=== PATIENT | female | born 1975 | race Asian ===

== ENCOUNTER 2019-09-15 13:19 | Inpatient (IN) | payer MEDICAID ==
[~2019-09-15] VITALS: Ht 160 cm; Wt 63.5 kg
[2019-09-15 13:20] VITALS: BP_SYST 127
--- NOTE | 2019-09-15 13:27 | NUR ---
Patient triaged and placed in waiting room. VSS and patient appears in no acute distress at this time. Accompanied by mother, awaiting available bed, and MD notified of need for MSE.
--- NOTE | 2019-09-15 13:45 | NUR ---
CORY Fonseca at bedside examining patient.
--- NOTE | 2019-09-15 14:07 | NUR ---
Patient is awake, alert, and oriented x4. She is complaining of shortness of breath x3 days, abdominal pain and right shoulder pain. She denies nausea and vomiting.
[2019-09-15 14:28] LABS: BASOPHILS # (AUTO) 0.1 K/uL (0.0-0.2); BASOPHILS % (AUTO) 0.9 % (0.0-2.0); EOSINOPHILS # (AUTO) 0.3 K/uL (0.0-0.4); EOSINOPHILS % (AUTO) 3.1 % (0.0-4.0); HEMATOCRIT 48.4 % (36-48); HEMOGLOBIN 16.2 g/dL (12.0-16.0); LYMPHOCYTES # (AUTO) 2.3 K/uL (1.0-5.5); LYMPHOCYTES % (AUTO) 26.6 % (20.5-51.5); MEAN CORPUSCULAR HEMOGLOBIN 31 pg (27-31); MEAN CORPUSCULAR HGB CONC 33 % (32-36); MEAN CORPUSCULAR VOLUME 92 fL (79.0-98.0); MONOCYTES # (AUTO) 0.7 K/uL (0.0-1.0); MONOCYTES % (AUTO) 7.9 % (1.7-9.3); NEUTROPHILS # (AUTO) 5.3 K/uL (1.8-7.7); NEUTROPHILS % (AUTO) 61.5 % (40.0-70.0); PLATELET COUNT (AUTO) 248 K/uL (130-430); RED BLOOD CELL COUNT(AUTO) 5.23 MIL/uL (4.2-6.2); RED CELL DISTRIBUTION WIDTH 13.5 % (9.0-15.0); WHITE BLOOD COUNT (AUTO) 8.5 K/uL (4.8-10.8)
[2019-09-15 14:29] LABS: CALCIUM 8.2 mg/dL (8.4-11.0); CREATININE 1.38 mg/dL (0.55-1.30); POTASSIUM 3.8 mmol/L (3.5-5.1)
[2019-09-15 14:35] LABS: ALBUMIN 2.2 g/dL (3.4-4.8); TOTAL BILIRUBIN 0.4 mg/dL (0.0-1.0)
[2019-09-15 14:40] LABS: BILIRUBIN,URINE NEGATIVE (NEGATIVE); BLOOD, URINE 2+ (NEGATIVE); CLARITY/URINE CLEAR (CLEAR); COLOR,URINE YELLOW (YELLOW); GLUCOSE,URINE 3+ (NEGATIVE); KETONES,URINE NEGATIVE (NEGATIVE); LEUKOCYTE ESTERASE ,URINE NEGATIVE (NEGATIVE); NITRITE, URINE NEGATIVE (NEGATIVE); PH,URINE 5.5 (5.0-8.0); PROTEIN URINE 3+ (NEGATIVE); UROBILINOGEN,URINE 0.2 (0.2-1.0)
[2019-09-15 14:51] LABS: BARBITURATE, URINE NEGATIVE (NEG <=200); BENZODIAZEPINE, URINE NEGATIVE (NEG <=150); CANNABINOID, URINE NEGATIVE (NEG <=50); COCAINE, URINE NEGATIVE (NEG <=150); METHAMPHETAMINES SCREEN,URINE POSITIVE (NEG <=500); OPIATE, URINE NEGATIVE (NEG <=100); PHENCYCLIDINE SCREEN,URINE NEGATIVE (NEG <=25); RBC,URINE 0-3 /HPF (0-3); UR TRICYCLIC ANTIDEPRESSANTS NEGATIVE (NEG <=300); URINE AMPHETAMINE POSITIVE (NEG <=500); URINE METHADONE NEGATIVE (NEG <=200); URINE OXYCODONE SCREEN NEGATIVE (NEG <=100); URINE PROPOXYPHENE SCREEN NEGATIVE (NEG <=300); WBC,URINE 0-3 /HPF (0-3)
[2019-09-15 14:52] LABS: BACTERIA,URINE FEW /HPF (None Seen); MUCUS,URINE None Seen /LPF (None Seen)
--- NOTE | 2019-09-15 15:23 | NUR ---
Patient will be admitted to care of Dr. Rizo. Admitted to Telemetry unit. Waiting for room assignment. Belongings list completed. Complete and up to date summary report printed. SBAR report to be given at bedside with opportunity for questions.
[2019-09-15] MEDS ORDERED: ASPIRIN 325 MG TABLET PO ONE (15:30)
--- NOTE | 2019-09-15 15:40 | NUR ---
Medication reconciliation completed with information provided by patient. Any prior medication reconciliation on file was reviewed and corrected.
--- NOTE | 2019-09-15 15:46 | NUR ---
Transfer to 116B via ACLS protocol. Licensed nurse present. IV present no signs or symptoms of infiltration.
--- NOTE | 2019-09-15 15:54 | NUR ---
ADMISSION NOTE Received patient from ER via [facility], received report from Lb CARRILLO. Patient admitted with diagnosis of NSTEM R/O ACS. Patient oriented to hospital routine, call light, toileting and safety-patient verbalized understanding.
[2019-09-15 16:00] VITALS: BP_SYST 126
[2019-09-15] MEDS ORDERED: LORazepam 2 MG/ML VIAL IM PRN (16:45)
[2019-09-15] MEDS ORDERED: HYDROcodone/ACETAMIN 5-325 MG TAB (NORCO/ VICODIN) PO PRN (16:45)
[2019-09-15] MEDS ORDERED: ACETAMINOPHEN 325 MG TABLET PO PRN (16:45)
[2019-09-15] MEDS ORDERED: DEXTROSE 50% JECT 50 ML DISP.SYRIN IVP PRN (16:45)
[2019-09-15] MEDS ORDERED: ONDANSETRON HCL 4 MG/2 ML VIAL IVP PRN (16:45)
[2019-09-15] MEDS ORDERED: GLUCOSE 15 GM GEL (in 37.5 GM TUBE) PO PRN (16:45)
[2019-09-15] MEDS ORDERED: NACL 0.9% 1,000 ML IV SCH (16:45)
--- NOTE | 2019-09-15 16:47 | NUR ---
SEEN AND EXAMINED BY ASHLY MUNOZ Dr. assess patient at bedside. Explained the diagnosis and medical condition of the patient, verbally understanding.
--- NOTE | 2019-09-15 16:48 | NUR ---
CONSULT CONSULT CALLED FOR DR MONTOYA, JEWELRY BENCH WORKER, FOR CHF, CONSULT FROM ASHLY WILLIS SPOKE WITH CHARAN
[2019-09-15 16:53] VITALS: BP_SYST 126
[2019-09-15 17:41] LABS: INR 1.1 (0.8-1.2); PROTHROMBIN TIME 10.6 SECS (9.5-12.5)
[2019-09-15] MEDS: INSULIN REGULAR, HUMAN 100 UNITS/ML, 10 ML VIAL (humuLIN R) SUBCUT PRN ×2 (17:41→23:35)
[2019-09-15 17:50] LABS: PHOSPHORUS 3.1 mg/dL (2.7-4.5); THYROID STIMULATING HORMONE 4.16 uIu/mL (0.36-3.74)
--- NOTE | 2019-09-15 18:06 | NUR ---
TROPONIN=0.210 Called Mohamud Junior for Troponin=0.210, first troponin=0.239. Dr. Rizo with no new order at this time.
--- NOTE | 2019-09-15 18:59 | NUR ---
CLOSING NOTE Patient resting in the bed with eyes closed. No acute distress. IV intact to LAC, no redness, no swelling, no drainage. On NS at 20ml/hr, infusing well. All needs met. Safety measure maintained. Call light within reached. Bed locked in low position, side rails up. Refused bed alarm, risk and benefit explained, verbally understanding. Will endorse to night nurse.
[2019-09-15 20:00] VITALS: BP_SYST 131
--- NOTE | 2019-09-15 20:00 | NUR ---
Received pt. in bed, adlib, can ambulate to the BR. Pt. in room air, breathing regular and unlabored. Denies pain and denies chest pain when assessed. Pt. alert, awake, oriented x 4, and able to verbalized understanding of present health needs. Provided pt. assistance and bedside care. Pt. SR with heart rate = 85 /minute or 80's @ the monitor.
--- NOTE | 2019-09-15 21:50 | NUR ---
Due meds. given. @ around this time. Pt. able to swallow meds. without difficulty. IVF of NS continuously running @ 20 mls./hr.
[2019-09-15] MEDS: DOCUSATE SODIUM 100 MG CAPSULE PO SCH (22:03)
[2019-09-15] MEDS: FUROSEMIDE 40 MG/4 ML VIAL IVP SCH (22:03)
[2019-09-15] MEDS: METOPROLOL TARTRATE 25 MG TABLET PO SCH (22:05)
[2019-09-15] MEDS: HEPARIN SODIUM,PORCINE 5000 UNITS/ML VIAL SUBCUT SCH (22:07)
--- NOTE | 2019-09-15 22:50 | NUR ---
Accucheck taken with result of = 222, see Emar for the Regular Insulin s/s coverage given.
--- NOTE | 2019-09-16 00:30 | NUR ---
Pt. sleeping and resting. No s/s of acute change. Pt. denies pain. Pt. denies chest pain. Pt. returned to sleep. SR @ the tele monitor.
--- NOTE | 2019-09-16 04:00 | NUR ---
Pt. calm and asleep. SR @ the monitor. Provided bedside nsg. care.
[2019-09-16 04:30] VITALS: BP_SYST 116
--- NOTE | 2019-09-16 06:30 | NUR ---
Accucheck taken with result of = 149 , No coverage of Insulin needed. Pt. still resting and dozing to sleep. Awaiting breakfast.
[2019-09-16 08:00] VITALS: BP_SYST 134
--- NOTE | 2019-09-16 08:00 | NUR ---
Note Pt sitting up in bed eating her breakfast. No SOB/resp distress or chest pain/discomfort was noted at this time. IV in left AC intact and patent. No needs noted at this time. Call light within reach.
[2019-09-16 08:49] LABS: BASOPHILS # (AUTO) 0.1 K/uL (0.0-0.2); EOSINOPHILS # (AUTO) 0.3 K/uL (0.0-0.4); EOSINOPHILS % (AUTO) 2.8 % (0.0-4.0); HEMATOCRIT 51.6 % (36-48); HEMOGLOBIN 17.5 g/dL (12.0-16.0); LYMPHOCYTES # (AUTO) 2.4 K/uL (1.0-5.5); LYMPHOCYTES % (AUTO) 27.2 % (20.5-51.5); MEAN CORPUSCULAR HEMOGLOBIN 31 pg (27-31); MEAN CORPUSCULAR HGB CONC 34 % (32-36); MEAN CORPUSCULAR VOLUME 91 fL (79.0-98.0); MONOCYTES # (AUTO) 0.8 K/uL (0.0-1.0); MONOCYTES % (AUTO) 8.6 % (1.7-9.3); NEUTROPHILS # (AUTO) 5.4 K/uL (1.8-7.7); NEUTROPHILS % (AUTO) 60.4 % (40.0-70.0); PLATELET COUNT (AUTO) 257 K/uL (130-430); RED BLOOD CELL COUNT(AUTO) 5.65 MIL/uL (4.2-6.2); RED CELL DISTRIBUTION WIDTH 13.4 % (9.0-15.0); WHITE BLOOD COUNT (AUTO) 8.9 K/uL (4.8-10.8)
[2019-09-16] MEDS: DOCUSATE SODIUM 100 MG CAPSULE PO SCH ×3 (08:54→20:57)
[2019-09-16] MEDS: METOPROLOL TARTRATE 25 MG TABLET PO SCH (08:55)
[2019-09-16] MEDS: ASPIRIN 81 MG TAB.CHEW PO SCH (08:56)
[2019-09-16] MEDS: ATORVASTATIN 20 MG TABLET PO SCH (08:56)
[2019-09-16] MEDS: FUROSEMIDE 40 MG/4 ML VIAL IVP SCH ×2 (08:56→20:55)
[2019-09-16] MEDS ORDERED: LISINOPRIL 5 MG TABLET PO SCH (09:00)
[2019-09-16 09:02] LABS: CALCIUM 8.4 mg/dL (8.4-11.0); CREATININE 1.18 mg/dL (0.55-1.30); POTASSIUM 4.3 mmol/L (3.5-5.1)
[2019-09-16] MEDS: HEPARIN SODIUM,PORCINE 5000 UNITS/ML VIAL SUBCUT SCH (09:02)
[2019-09-16] MEDS ORDERED: CARVEDILOL 6.25 MG TABLET (COREG) PO ONE (09:30)
--- NOTE | 2019-09-16 11:30 | NUR ---
Note Pt had her 2D-echo done at bedside. Dr Davis and Dr Rizo did rounds and assessment done at bedside. Pt's parents came to visit at this time as well. Pt ambulates to restroom independently with IV pole. No needs noted at this time. Call light within reach.
[2019-09-16 12:00] VITALS: BP_SYST 115
[2019-09-16] MEDS: INSULIN REGULAR, HUMAN 100 UNITS/ML, 10 ML VIAL (humuLIN R) SUBCUT PRN ×2 (12:12→21:05)
--- NOTE | 2019-09-16 13:50 | NUR ---
Note Pt resting in bed - denies any needs at this time. Tele unit attached and intact all shift. IV in left AC intact and patent. Call light within reach.
[2019-09-16 16:00] VITALS: BP_SYST 119
--- NOTE | 2019-09-16 18:30 | NUR ---
Note Pt asleep in bed after finishing her dinner sitting on side of bed. Pt was checked on q1' and PRN all shift for needs and care. IV in left AC intact and patent. No SOB/resp distress or chest pain/discomfort noted all shift. Tele unit attached and intact all shift. Call light within reach. Pt has been ambulating to restroom with steady gait all shift independently.
--- NOTE | 2019-09-16 19:30 | NUR ---
OPENING NOTES Received bedside report from GERARDO Moore. Patient is resting in bed, eyes closed, breathing evenly and nonlabored. Patient has an IV on the left AC saline locked, 18g, patent and benign, no s/s of infiltration or infection noted. Call light is with patient, instructed to call for assistance when needed, patient verbalized understanding and demonstrated back proper use. Bed is locked and at lowest position. Will continue to monitor.
[2019-09-16 19:55] VITALS: BP_SYST 119
[2019-09-16] MEDS: CARVEDILOL 6.25 MG TABLET (COREG) PO SCH (20:55)
--- NOTE | 2019-09-16 20:55 | NUR ---
MEDICATIONS/ROUNDS Patient is resting in bed, awake, alert, and oriented x4. Educated patient on medications, patient stated understanding. Patient refused colace at this time. Administered medications to the patient, patient tolerated them well. Patient asked for some snacks which was provided. No other needs at this time. Fall/safety precautions.
--- NOTE | 2019-09-16 23:08 | NUR ---
CRITICAL LAB VALUE REPORT Spoke with Dr. Khan and reported troponin level of 0.112. Dr. Khan did not give new orders and said to continue current plan of care.
[2019-09-16 23:40] VITALS: BP_SYST 101
--- NOTE | 2019-09-16 23:50 | NUR ---
ROUNDS Patient is resting in bed, eyes closed, breathing evenly and nonlabored. Vital signs stable. Patient denies pain at this time. No s/s of distress at this time. Patient asked for crackers and cranberry juice, which was provided, water was replaced. No other needs at this time. Fall/safety precautions.
--- NOTE | 2019-09-17 02:00 | NUR ---
ROUNDS Patient is resting in bed, eyes closed, breathing evenly and nonlabored. No s/s of distress at this time. No other needs at this time. Fall/safety precautions.
[2019-09-17] MEDS: INSULIN REGULAR, HUMAN 100 UNITS/ML, 10 ML VIAL (humuLIN R) SUBCUT PRN ×2 (06:08→11:20)
--- NOTE | 2019-09-17 06:15 | NUR ---
CLOSING NOTES Patient is resting in bed, eyes closed, breathing evenly and nonlabored. BS checked, coverage needed, educated patient on medication, patient stated understanding. Administered medication, patient tolerated it well. Will report plan of care and endorse to morning shift RN. Fall/safety precautions.
[2019-09-17 07:25] LABS: PROTHROMBIN TIME 10.4 SECS (9.5-12.5)
[2019-09-17 07:28] LABS: BASOPHILS # (AUTO) 0.1 K/uL (0.0-0.2); EOSINOPHILS # (AUTO) 0.3 K/uL (0.0-0.4); EOSINOPHILS % (AUTO) 4.4 % (0.0-4.0); HEMATOCRIT 47.1 % (36-48); HEMOGLOBIN 15.8 g/dL (12.0-16.0); LYMPHOCYTES # (AUTO) 2.2 K/uL (1.0-5.5); LYMPHOCYTES % (AUTO) 28.5 % (20.5-51.5); MEAN CORPUSCULAR HEMOGLOBIN 31 pg (27-31); MEAN CORPUSCULAR HGB CONC 34 % (32-36); MEAN CORPUSCULAR VOLUME 92 fL (79.0-98.0); MONOCYTES # (AUTO) 0.7 K/uL (0.0-1.0); MONOCYTES % (AUTO) 8.9 % (1.7-9.3); NEUTROPHILS # (AUTO) 4.5 K/uL (1.8-7.7); NEUTROPHILS % (AUTO) 57.2 % (40.0-70.0); PLATELET COUNT (AUTO) 233 K/uL (130-430); RED BLOOD CELL COUNT(AUTO) 5.15 MIL/uL (4.2-6.2); RED CELL DISTRIBUTION WIDTH 13.2 % (9.0-15.0); WHITE BLOOD COUNT (AUTO) 7.8 K/uL (4.8-10.8)
[2019-09-17 07:31] LABS: CALCIUM 8.1 mg/dL (8.4-11.0); CREATININE 1.29 mg/dL (0.55-1.30); POTASSIUM 3.8 mmol/L (3.5-5.1); TOTAL BILIRUBIN 0.5 mg/dL (0.0-1.0)
--- NOTE | 2019-09-17 08:00 | NUR ---
ASSUMPTION OF CARE: RECEIVED PT ASLEEP, AROUSED VIA VERBAL STIMULI, DX:INADEQUATE PERFUSION, R/T NSTEMI, R/O ACS. PT REMAINS ASYMPTOMATIC, VSS, AFEBRILE, BREATHING EASY, NO S/S OF DISTRESS, IV SITE INTACT, PATENT, NO REDNESS OR SWELLING, SALINE LOCKED, ORIENTED TO UNIT, BRP WITH STEADY GAIT, CALL LIGHT PLACED WITHIN REACH, WILL CONT' TO MONITOR AND ASSESS.
[2019-09-17 08:20] VITALS: BP_SYST 99
[2019-09-17 08:31] LABS: THYROID STIMULATING HORMONE 2.55 uIu/mL (0.36-3.74)
[2019-09-17] MEDS ORDERED: LISINOPRIL 5 MG TABLET PO SCH (09:00)
--- NOTE | 2019-09-17 09:00 | NUR ---
SOCIAL MEDIA MARKETING SPECIALIST: MORNING MEDS GIVEN, PER ORDERED BY Miriam, TOLERATED WELL, WILL CONT' TO MONITOR AND ASSESS.
[2019-09-17] MEDS: DOCUSATE SODIUM 100 MG CAPSULE PO SCH (10:07)
[2019-09-17] MEDS: CARVEDILOL 6.25 MG TABLET (COREG) PO SCH (10:07)
[2019-09-17] MEDS: ATORVASTATIN 20 MG TABLET PO SCH (10:07)
[2019-09-17] MEDS: ASPIRIN 81 MG TAB.CHEW PO SCH (10:08)
--- NOTE | 2019-09-17 10:30 | NUR ---
VISIT: AT BEDSIDE FOR ASSESSMENT OF PT, DISCUSSED POC, PT VERBALIZES UNDERSTANDING, WILL CONT' TO MONITOR AND ASSESS.
[2019-09-17] MEDS ORDERED: ASPI-1457 PO (10:34)
[2019-09-17] MEDS ORDERED: CARV6.2554 PO (10:34)
[2019-09-17] MEDS ORDERED: POTA10TA15 PO (10:34)
[2019-09-17] MEDS ORDERED: FURO-149 PO (10:34)
[2019-09-17] MEDS ORDERED: LIP10 PO (10:34)
[2019-09-17] MEDS ORDERED: METF1000 PO (10:34)
--- NOTE | 2019-09-17 11:30 | NUR ---
GLUCOSE MONITORING: BLOOD SUGAR DRHEM=671, 6 UNITS REGULAR INSULIN GIVEN SQ, TOLERATING CARDIAC DIET, WILL CONT' WITH POC.
[2019-09-17 12:25] VITALS: BP_SYST 118
--- NOTE | 2019-09-17 13:18 | NUR ---
Tender Coordinator Note ONCOLOGY COORDINATOR conducted a Discharge Plan Assessment. Patient was referred by Tender Coordinator due to positive meth test. ONCOLOGY COORDINATOR met with patient at bedside. Patient is alert and oriented. 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 She lives with her mother and step-father. Patient admits to meth use periodically over the last three years. She stated her parents are not aware of her substance abuse. Patient has shared custody of her 11 year old son, Jason Morales, with her ex-, Bruce Morales. Patient stated she does not use drugs in her home or when her son is in her custody. She has not had contact with CPS in the past. Patient stated she uses meth as a way to cope with depression. 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 Her life has not gone as she planned, including divorce, no job prospects, and problems with her teeth. Patient denies suicidal ideation or plan but agrees she needs mental health follow up. She has not been followed by a PCP. She periodically has checked her blood sugar with her mom's monitor. She said it has been under control until recently. She is aware that she will need to make adjustments to her diet. She said the physicians at the hospital have made it clear to her that she must stop the meth use and that she will need medications and follow up medical care. Patient has met with [employer] and begun a [employer] application. I stressed the importance of following up on this. ONCOLOGY COORDINATOR provided patient with advice on follow up and resource handouts on the following: [facility], Mental Health Resources, Substance Abuse resources. Also provided patient with my card. ONCOLOGY COORDINATOR phoned CPS, , to discuss the case. Spoke with Hugo Iqbal and notified him of the above information about patient's drug use, but not reportedly around her 11 year old child. He stated that patient does not have an open case and that there is no criteria to report. Tender Coordinator will remain available as needed.
[2019-09-17 15:44] VITALS: BP_SYST 118
--- NOTE | 2019-09-17 16:00 | NUR ---
DISCHARGE: PT HAS ORDER FOR DISCHARGE TO HOME, CONDITION IS STABLE, INSTRUCTIONS GIVEN FOR FOLLOW-UP CARE WITH PCP, PT VERBALIZES UNDERSTANDING, IV SITE D/C'ED, TOLERATED WELL, AWAITING FAMILY MEMBER TO PICK-UP.
[2019-09-17 16:35] VITALS: BP_SYST 105
[2019-09-18] MEDS ORDERED: FUROSEMIDE 40 MG TABLET PO SCH (09:00)
== END 2019-09-17 16:35 | disposition home or self-care (01) | DRG 190 ==
LOC: SED 13:19 → STU 15:22
PROVIDERS: ADMIT Student in an Organized Health Care Education/Training Program; ATTEND Student in an Organized Health Care Education/Training Program
DX: I21.A1 Myocardial infarction type 2 (principal); N17.0 Acute kidney failure with tubular necrosis; E43 Unspecified severe protein-calorie malnutrition; I50.43 Acute on chronic combined systolic (congestive) and diastolic (congestive) heart failure; E03.9 Hypothyroidism, unspecified; E11.65 Type 2 diabetes mellitus with hyperglycemia; E87.1 Hypo-osmolality and hyponatremia; F15.10 Other stimulant abuse, uncomplicated; I42.0 Dilated cardiomyopathy; Z87.891 Personal history of nicotine dependence; Z68.24 Body mass index [BMI] 24.0-24.9, adult; Z79.899 Other long term (current) drug therapy; Z81.8 Family history of other mental and behavioral disorders; F32.9 Major depressive disorder, single episode, unspecified
CPT/HCPCS: 36415; 71045; 80048; 80053; 80061; 80307; 81000-TC; 82962; 83036; 83735-TC; 83880; 84100-TC; 84443-TC; 84484; 85025; 85610-TC; 85730-TC; 86710; 93005; 93306; 99285; G0378; J1644; J1815; J1940; J7030

== ENCOUNTER 2022-05-27 01:45 | Inpatient (IN) | payer MEDICAID ==
[~2022-05-27] VITALS: Ht 160 cm; Wt 61.5 kg
[~2022-05-27 01:45] MED LIST: ASPI-1457 PO; CARV6.2554 PO; FURO-149 PO; LIP10 PO; METF1000 PO; POTA10TA15 PO
[2022-05-27 01:47] VITALS: BP_SYST 123
[2022-05-27 02:26] LABS: BASOPHILS # (AUTO) 0.1 K/uL (0.0-0.2); BASOPHILS % (AUTO) 1.3 % (0.0-2.0); EOSINOPHILS # (AUTO) 0.2 K/uL (0.0-0.4); HEMATOCRIT 50.7 % (36-48); HEMOGLOBIN 17.3 g/dL (12.0-16.0); LYMPHOCYTES # (AUTO) 2.6 K/uL (1.0-5.5); MEAN CORPUSCULAR HEMOGLOBIN 31 pg (27-31); MEAN CORPUSCULAR HGB CONC 34 % (32-36); MEAN CORPUSCULAR VOLUME 92 fL (79.0-98.0); MONOCYTES # (AUTO) 0.6 K/uL (0.0-1.0); MONOCYTES % (AUTO) 7.3 % (1.7-9.3); NEUTROPHILS # (AUTO) 5.3 K/uL (1.8-7.7); NEUTROPHILS % (AUTO) 60.4 % (40.0-70.0); PLATELET COUNT (AUTO) 294 K/uL (130-430); RED BLOOD CELL COUNT(AUTO) 5.52 MIL/uL (4.2-6.2); RED CELL DISTRIBUTION WIDTH 13.4 % (9.0-15.0); WHITE BLOOD COUNT (AUTO) 8.8 K/uL (4.8-10.8)
[2022-05-27 02:43] LABS: ANION GAP 8 (5-15); CALCIUM 9.4 mg/dL (8.4-11.0); CHLORIDE 92 mmol/L (98-107); CREATININE 1.83 mg/dL (0.55-1.30); POTASSIUM 4.6 mmol/L (3.5-5.1); SODIUM SERUM 126 mmol/L (136-145); UREA NITROGEN, BLOOD 28 mg/dL (8-21)
[2022-05-27 02:58] LABS: ALANINE AMINOTRANSFERASE 38 U/L (12-78); ALBUMIN 2.3 g/dL (3.4-4.8); ASPARTATE AMINOTRANSFERASE 52 U/L (10-37); TOTAL BILIRUBIN 0.3 mg/dL (0.0-1.0)
[2022-05-27 03:01] LABS: GLUCOSE 426 mg/dL (70-99)
[2022-05-27 03:02] LABS: GFR AFRICAN AMERICAN 39 mL/min (>90)
[2022-05-27 03:06] LABS: INR 0.9 (0.8-1.2); PROTHROMBIN TIME 9.7 SECS (9.5-12.5)
[2022-05-27] MEDS ORDERED: ASPIRIN 81 MG TAB.CHEW PO ONE (03:15)
[2022-05-27] MEDS ORDERED: NITROGLYCERIN 0.4 MG TAB.SUBL SL ONE (03:15)
[2022-05-27] MEDS ORDERED: MAGNESIUM SULFATE/D5W 100 ML IV ONE (03:15)
[2022-05-27] MEDS ORDERED: METF500S9 PO (04:27)
[2022-05-27] MEDS ORDERED: METO25TA6 PO (04:30)
[2022-05-27] MEDS ORDERED: INSULIN REGULAR, HUMAN 10 UNITS/0.1 ML INJ IVP ONE (04:30)
[2022-05-27 05:58] VITALS: BP_SYST 120
[2022-05-27] MEDS ORDERED: IBUP-2101 PO (06:27)
[2022-05-27 08:00] VITALS: BP_SYST 127
[2022-05-27] MEDS ORDERED: POTASSIUM CHLORIDE 20 MEQ TAB.PRT.SR PO PRN (08:45)
[2022-05-27] MEDS ORDERED: IBUPROFEN 200 MG TABLET PO SCH (08:45)
[2022-05-27] MEDS ORDERED: ZOLPIDEM TARTRATE 5 MG TABLET PO PRN (08:45)
[2022-05-27] MEDS ORDERED: MAGNESIUM SULFATE 50 ML IV PRN (08:45)
[2022-05-27] MEDS ORDERED: ACETAMINOPHEN 325 MG TABLET PO PRN (08:45)
[2022-05-27] MEDS ORDERED: MUPIROCIN 2% TOPICAL OINTMENT 22 GM NS PRN (08:45)
[2022-05-27] MEDS ORDERED: ONDANSETRON HCL 4 MG/2 ML VIAL IVP PRN (08:45)
[2022-05-27] MEDS ORDERED: DOCUSATE SODIUM 100 MG CAPSULE PO PRN (08:45)
[2022-05-27] MEDS: ASPIRIN 81 MG TAB.CHEW PO SCH (08:49)
[2022-05-27] MEDS ORDERED: LORazepam 1 MG TABLET PO PRN (09:00)
[2022-05-27] MEDS ORDERED: METOPROLOL TARTRATE 25 MG TABLET PO SCH (09:00)
[2022-05-27 12:00] VITALS: BP_SYST 125
[2022-05-27] MEDS: CARVEDILOL 6.25 MG TABLET (COREG) PO SCH ×2 (12:03→20:46)
[2022-05-27] MEDS: FUROSEMIDE 40 MG/4 ML VIAL IVP SCH (12:03)
[2022-05-27] MEDS: INSULIN NPH/REGULAR 70-30, 100 UNITS/ML, 10 ML VIAL SUBCUT SCH ×2 (12:07→18:19)
[2022-05-27] MEDS: INSULIN REGULAR, HUMAN 100 UNITS/ML, 10 ML VIAL (humuLIN R) SUBCUT PRN ×3 (12:08→21:05)
[2022-05-27 14:10] LABS: BILIRUBIN,URINE NEGATIVE (NEGATIVE); BLOOD, URINE 1+ (NEGATIVE); CLARITY/URINE CLEAR (CLEAR); COLOR,URINE YELLOW (YELLOW); GLUCOSE,URINE 3+ (NEGATIVE); KETONES,URINE NEGATIVE (NEGATIVE); LEUKOCYTE ESTERASE ,URINE NEGATIVE (NEGATIVE); NITRITE, URINE NEGATIVE (NEGATIVE); PROTEIN URINE 3+ (NEGATIVE); UROBILINOGEN,URINE 0.2 (0.2-1.0)
[2022-05-27 14:35] LABS: BACTERIA,URINE FEW /HPF (None Seen); BARBITURATE, URINE NEGATIVE (NEG <=200); BENZODIAZEPINE, URINE NEGATIVE (NEG <=150); CANNABINOID, URINE NEGATIVE (NEG <=50); COCAINE, URINE NEGATIVE (NEG <=150); METHAMPHETAMINES SCREEN,URINE POSITIVE (NEG <=500); MUCUS,URINE None Seen /LPF (None Seen); OPIATE, URINE NEGATIVE (NEG <=100); PHENCYCLIDINE SCREEN,URINE NEGATIVE (NEG <=25); RBC,URINE NONE SEEN /HPF (0-3); UR TRICYCLIC ANTIDEPRESSANTS NEGATIVE (NEG <=300); URINE AMPHETAMINE POSITIVE (NEG <=500); URINE METHADONE NEGATIVE (NEG <=200); URINE OXYCODONE SCREEN NEGATIVE (NEG <=100); URINE PROPOXYPHENE SCREEN NEGATIVE (NEG <=300); WBC,URINE 0-3 /HPF (0-3)
[2022-05-27 16:00] VITALS: BP_SYST 116
[2022-05-27 20:24] VITALS: BP_SYST 97
[2022-05-28] MEDS: INSULIN NPH/REGULAR 70-30, 100 UNITS/ML, 10 ML VIAL SUBCUT SCH ×2 (06:02→16:30)
[2022-05-28 07:03] LABS: BASOPHILS # (AUTO) 0.1 K/uL (0.0-0.2); BASOPHILS % (AUTO) 0.9 % (0.0-2.0); EOSINOPHILS # (AUTO) 0.1 K/uL (0.0-0.4); EOSINOPHILS % (AUTO) 0.5 % (0.0-4.0); HEMATOCRIT 49.6 % (36-48); HEMOGLOBIN 17.5 g/dL (12.0-16.0); LYMPHOCYTES # (AUTO) 1.4 K/uL (1.0-5.5); LYMPHOCYTES % (AUTO) 11.7 % (20.5-51.5); MEAN CORPUSCULAR HEMOGLOBIN 32 pg (27-31); MEAN CORPUSCULAR HGB CONC 35 % (32-36); MEAN CORPUSCULAR VOLUME 90 fL (79.0-98.0); MONOCYTES # (AUTO) 0.6 K/uL (0.0-1.0); MONOCYTES % (AUTO) 5.3 % (1.7-9.3); NEUTROPHILS % (AUTO) 81.6 % (40.0-70.0); PLATELET COUNT (AUTO) 288 K/uL (130-430); RED BLOOD CELL COUNT(AUTO) 5.51 MIL/uL (4.2-6.2); WHITE BLOOD COUNT (AUTO) 12.2 K/uL (4.8-10.8)
[2022-05-28 07:08] LABS: CALCIUM 9.5 mg/dL (8.4-11.0); CREATININE 1.63 mg/dL (0.55-1.30); POTASSIUM 3.6 mmol/L (3.5-5.1)
[2022-05-28 07:13] LABS: PROTHROMBIN TIME 10.1 SECS (9.5-12.5)
[2022-05-28 07:21] LABS: ALBUMIN 1.9 g/dL (3.4-4.8); THYROID STIMULATING HORMONE 1.44 uIu/mL (0.36-3.74); TOTAL BILIRUBIN 0.5 mg/dL (0.0-1.0)
[2022-05-28 07:32] VITALS: BP_SYST 130
[2022-05-28] MEDS: ASPIRIN 81 MG TAB.CHEW PO SCH (08:47)
[2022-05-28] MEDS: CARVEDILOL 6.25 MG TABLET (COREG) PO SCH ×2 (08:48→21:02)
[2022-05-28] MEDS: FUROSEMIDE 40 MG/4 ML VIAL IVP SCH (09:04)
[2022-05-28] MEDS: INSULIN REGULAR, HUMAN 100 UNITS/ML, 10 ML VIAL (humuLIN R) SUBCUT PRN ×3 (11:37→22:31)
[2022-05-28 12:05] VITALS: BP_SYST 114
[2022-05-28 16:00] VITALS: BP_SYST 120
[2022-05-28 21:00] VITALS: BP_SYST 112
[2022-05-29] VITALS: BP_SYST 117
[2022-05-29] MEDS: INSULIN NPH/REGULAR 70-30, 100 UNITS/ML, 10 ML VIAL SUBCUT SCH (07:02)
[2022-05-29] MEDS: INSULIN REGULAR, HUMAN 100 UNITS/ML, 10 ML VIAL (humuLIN R) SUBCUT PRN (07:04)
[2022-05-29 07:11] LABS: BASOPHILS # (AUTO) 0.1 K/uL (0.0-0.2); BASOPHILS % (AUTO) 1.2 % (0.0-2.0); EOSINOPHILS # (AUTO) 0.3 K/uL (0.0-0.4); EOSINOPHILS % (AUTO) 4.3 % (0.0-4.0); HEMATOCRIT 46.4 % (36-48); HEMOGLOBIN 16.1 g/dL (12.0-16.0); LYMPHOCYTES # (AUTO) 2.5 K/uL (1.0-5.5); LYMPHOCYTES % (AUTO) 33.5 % (20.5-51.5); MEAN CORPUSCULAR HEMOGLOBIN 31 pg (27-31); MEAN CORPUSCULAR HGB CONC 35 % (32-36); MEAN CORPUSCULAR VOLUME 91 fL (79.0-98.0); MONOCYTES # (AUTO) 0.6 K/uL (0.0-1.0); MONOCYTES % (AUTO) 8.6 % (1.7-9.3); NEUTROPHILS # (AUTO) 3.9 K/uL (1.8-7.7); NEUTROPHILS % (AUTO) 52.4 % (40.0-70.0); PLATELET COUNT (AUTO) 256 K/uL (130-430); RED BLOOD CELL COUNT(AUTO) 5.12 MIL/uL (4.2-6.2); RED CELL DISTRIBUTION WIDTH 13.2 % (9.0-15.0); WHITE BLOOD COUNT (AUTO) 7.4 K/uL (4.8-10.8)
[2022-05-29 07:35] VITALS: BP_SYST 112
[2022-05-29] MEDS ORDERED: FURO-149 PO (07:39)
[2022-05-29] MEDS ORDERED: COR6.25 PO (07:39)
[2022-05-29] MEDS ORDERED: ASPI-1457 PO (07:39)
[2022-05-29 08:03] LABS: CALCIUM 8.4 mg/dL (8.4-11.0); CREATININE 1.59 mg/dL (0.55-1.30); POTASSIUM 3.2 mmol/L (3.5-5.1)
[2022-05-29] MEDS: ASPIRIN 81 MG TAB.CHEW PO SCH (08:03)
[2022-05-29] MEDS: CARVEDILOL 6.25 MG TABLET (COREG) PO SCH (08:04)
[2022-05-29 09:42] VITALS: BP_SYST 112
[2022-05-30] MEDS ORDERED: FUROSEMIDE 40 MG TABLET PO SCH (09:00)
== END 2022-05-29 11:08 | disposition home or self-care (01) | DRG 194 ==
LOC: SED 01:45 → STU 04:31
PROVIDERS: ADMIT General Practice; ATTEND General Practice
DX: I13.0 Hypertensive heart and chronic kidney disease with heart failure and stage 1 through stage 4 chronic kidney disease, or unspecified chronic kidney disease (principal); N17.0 Acute kidney failure with tubular necrosis; E43 Unspecified severe protein-calorie malnutrition; I50.43 Acute on chronic combined systolic (congestive) and diastolic (congestive) heart failure; E87.1 Hypo-osmolality and hyponatremia; E11.65 Type 2 diabetes mellitus with hyperglycemia; F15.10 Other stimulant abuse, uncomplicated; I42.7 Cardiomyopathy due to drug and external agent; Z20.822 Contact with and (suspected) exposure to COVID-19; N18.30 Chronic kidney disease, stage 3 unspecified; E11.22 Type 2 diabetes mellitus with diabetic chronic kidney disease; I24.8 Other forms of acute ischemic heart disease; I42.0 Dilated cardiomyopathy; Z79.899 Other long term (current) drug therapy; Z79.84 Long term (current) use of oral hypoglycemic drugs; Z79.82 Long term (current) use of aspirin; F10.10 Alcohol abuse, uncomplicated; F11.10 Opioid abuse, uncomplicated
CPT/HCPCS: 36415; 71045; 76770; 80048; 80053; 80061; 80307; 81000; 82962; 83036; 83735; 83880; 84443; 84484; 85025; 85379; 85610-TC; 85730-TC; 93005; 93306; 96365; 96375; 99285; G0378; J1815; J1940

== ENCOUNTER 2023-05-26 17:43 | Inpatient (IN) | payer MEDICAID ==
[~2023-05-26] VITALS: Ht 160 cm; Wt 60.1 kg
[~2023-05-26 17:43] MED LIST changes: -CARV6.2554 PO; +COR6.25 PO; +IBUP-2101 PO; -LIP10 PO; -METF1000 PO; +METF500S9 PO; -POTA10TA15 PO
[2023-05-26 18:39] VITALS: BP_SYST 133; PULSE 89; RESP 20; TEMP 97.7; O2SAT 98
[2023-05-26 18:49] LABS: BASOPHILS # (AUTO) 0.1 K/uL (0.0-0.2); BASOPHILS % (AUTO) 1.3 % (0.0-2.0); EOSINOPHILS # (AUTO) 0.2 K/uL (0.0-0.4); EOSINOPHILS % (AUTO) 1.8 % (0.0-4.0); HEMATOCRIT 48.3 % (36-48); HEMOGLOBIN 15.7 g/dL (12.0-16.0); LYMPHOCYTES # (AUTO) 2.4 K/uL (1.0-5.5); LYMPHOCYTES % (AUTO) 28.4 % (20.5-51.5); MEAN CORPUSCULAR HEMOGLOBIN 31 pg (27-31); MEAN CORPUSCULAR HGB CONC 33 % (32-36); MEAN CORPUSCULAR VOLUME 94 fL (79.0-98.0); MONOCYTES # (AUTO) 0.6 K/uL (0.0-1.0); MONOCYTES % (AUTO) 7.7 % (1.7-9.3); NEUTROPHILS # (AUTO) 5.1 K/uL (1.8-7.7); NEUTROPHILS % (AUTO) 60.8 % (40.0-70.0); PLATELET COUNT (AUTO) 271 K/uL (130-430); RED BLOOD CELL COUNT(AUTO) 5.14 MIL/uL (4.2-6.2); RED CELL DISTRIBUTION WIDTH 14.8 % (9.0-15.0); WHITE BLOOD COUNT (AUTO) 8.4 K/uL (4.8-10.8)
[2023-05-26 19:00] LABS: ALANINE AMINOTRANSFERASE 28 U/L (12-78); ANION GAP 9 (5-15); CALCIUM 8.3 mg/dL (8.4-11.0); CARBON DIOXIDE 19 mmol/L (23-29); CHLORIDE 105 mmol/L (98-107); GFR AFRICAN AMERICAN 39 mL/min (>90); GLUCOSE 358 mg/dL (74-106); POTASSIUM 4.6 mmol/L (3.5-5.1); SODIUM SERUM 133 mmol/L (136-145); TOTAL BILIRUBIN 0.5 mg/dL (0.0-1.0); UREA NITROGEN, BLOOD 29 mg/dL (8-21)
[2023-05-26 19:07] LABS: GFR NON AFRICAN-AMERICAN 32 mL/min (>90)
[2023-05-26 19:18] LABS: ASPARTATE AMINOTRANSFERASE 49 U/L (10-37)
[2023-05-26 19:19] LABS: ALBUMIN 1.8 g/dL (3.4-4.8); TOTAL PROTEIN, SERUM 5.6 g/dL (6.4-8.3)
[2023-05-26] MEDS ORDERED: FUROSEMIDE 100 MG/10 ML VIAL IVP ONE (19:30)
[2023-05-26] MEDS ORDERED: INSULIN REGULAR, HUMAN 100 UNITS/ML, 3 ML VIAL IVP ONE (19:30)
[2023-05-26] MEDS ORDERED: ASPIRIN 81 MG TAB.CHEW PO ONE (19:30)
[2023-05-26 21:00] VITALS: BP_SYST 117; PULSE 101; RESP 18; TEMP 97.9; O2SAT 98
[2023-05-26] MEDS ORDERED: FURO40TA5 PO (21:05)
[2023-05-26] MEDS ORDERED: CARV3.1246 PO (21:05)
[2023-05-26] MEDS ORDERED: LANTUS (21:05)
[2023-05-26] MEDS ORDERED: EMPA25TA PO (21:05)
[2023-05-26] MEDS ORDERED: ASPI-1393 PO (21:05)
[2023-05-26] MEDS ORDERED: APIX5TAB PO (21:05)
[2023-05-26] MEDS ORDERED: INSU100V53 SUBCUT (21:06)
[2023-05-27 00:17] VITALS: BP_SYST 117; PULSE 101; RESP 18; TEMP 97.4; O2SAT 98
[2023-05-27 05:09] LABS: BASOPHILS # (AUTO) 0.1 K/uL (0.0-0.2); BASOPHILS % (AUTO) 1.4 % (0.0-2.0); EOSINOPHILS # (AUTO) 0.2 K/uL (0.0-0.4); EOSINOPHILS % (AUTO) 2.5 % (0.0-4.0); HEMOGLOBIN 16.6 g/dL (12.0-16.0); LYMPHOCYTES # (AUTO) 3.1 K/uL (1.0-5.5); LYMPHOCYTES % (AUTO) 37.3 % (20.5-51.5); MEAN CORPUSCULAR HEMOGLOBIN 31 pg (27-31); MEAN CORPUSCULAR HGB CONC 33 % (32-36); MEAN CORPUSCULAR VOLUME 94 fL (79.0-98.0); MONOCYTES # (AUTO) 0.5 K/uL (0.0-1.0); MONOCYTES % (AUTO) 6.6 % (1.7-9.3); NEUTROPHILS # (AUTO) 4.3 K/uL (1.8-7.7); NEUTROPHILS % (AUTO) 52.2 % (40.0-70.0); PLATELET COUNT (AUTO) 283 K/uL (130-430); RED BLOOD CELL COUNT(AUTO) 5.44 MIL/uL (4.2-6.2); RED CELL DISTRIBUTION WIDTH 14.7 % (9.0-15.0); WHITE BLOOD COUNT (AUTO) 8.3 K/uL (4.8-10.8)
[2023-05-27 08:00] VITALS: BP_SYST 124; PULSE 87; RESP 16; TEMP 97.5; O2SAT 99
[2023-05-27] MEDS ORDERED: FUROSEMIDE 40 MG/4 ML VIAL IVP SCH (09:00)
[2023-05-27] MEDS: ACETAMINOPHEN 325 MG TABLET PO PRN (09:44)
[2023-05-27] MEDS: CARVEDILOL 6.25 MG TABLET (COREG) PO SCH ×2 (09:45→21:14)
[2023-05-27] MEDS: EMPAGLIFLOZIN 10 MG TABLET PO SCH (09:47)
[2023-05-27] MEDS: INSULIN LISPRO SLIDING SCALE 100 UNITS/ML, 3 ML VIAL (humaLOG) SUBCUT PRN ×3 (11:53→21:25)
[2023-05-27 12:37] LABS: BARBITURATE, URINE NEGATIVE (NEG <=200); BENZODIAZEPINE, URINE NEGATIVE (NEG <=150); COCAINE, URINE NEGATIVE (NEG <=150); METHAMPHETAMINES SCREEN,URINE NEGATIVE (NEG <=500); URINE AMPHETAMINE NEGATIVE (NEG <=500); URINE METHADONE NEGATIVE (NEG <=200)
[2023-05-27 12:38] LABS: CANNABINOID, URINE NEGATIVE (NEG <=50); OPIATE, URINE NEGATIVE (NEG <=100); PHENCYCLIDINE SCREEN,URINE NEGATIVE (NEG <=25); UR TRICYCLIC ANTIDEPRESSANTS NEGATIVE (NEG <=300); URINE OXYCODONE SCREEN NEGATIVE (NEG <=100); URINE PROPOXYPHENE SCREEN NEGATIVE (NEG <=300)
[2023-05-27 12:44] VITALS: BP_SYST 109; PULSE 79; RESP 20; TEMP 97.5; O2SAT 98
[2023-05-27 12:52] LABS: CLARITY/URINE CLEAR (CLEAR); COLOR,URINE YELLOW (YELLOW); GLUCOSE,URINE 3+ (NEGATIVE); PROTEIN URINE 3+ (NEGATIVE)
[2023-05-27 12:53] LABS: BILIRUBIN,URINE NEGATIVE (NEGATIVE); BLOOD, URINE 1+ (NEGATIVE); KETONES,URINE NEGATIVE (NEGATIVE); LEUKOCYTE ESTERASE ,URINE NEGATIVE (NEGATIVE); NITRITE, URINE NEGATIVE (NEGATIVE); UROBILINOGEN,URINE 0.2 (0.2-1.0)
[2023-05-27 12:54] LABS: BACTERIA,URINE RARE /HPF (None Seen); WBC,URINE NONE SEEN /HPF (0-3)
[2023-05-27 16:30] VITALS: BP_SYST 115; PULSE 87; RESP 18; TEMP 97; O2SAT 99
[2023-05-27 20:00] VITALS: BP_SYST 108; PULSE 88; RESP 16; TEMP 97.3; O2SAT 99
[2023-05-27 21:14] VITALS: BP_SYST 114; PULSE 90; RESP 16; TEMP 97.6; O2SAT 99
[2023-05-27] MEDS: APIXABAN 2.5 MG TABLET PO SCH (21:21)
[2023-05-28] VITALS (7 sets, daily range): BP systolic 99–117; PULSE 75–89; RESP 16–20; TEMP 96.3–97.8; O2SAT 80–100
[2023-05-28 06:16] LABS: BASOPHILS # (AUTO) 0.1 K/uL (0.0-0.2); BASOPHILS % (AUTO) 1.2 % (0.0-2.0); EOSINOPHILS # (AUTO) 0.1 K/uL (0.0-0.4); EOSINOPHILS % (AUTO) 1.3 % (0.0-4.0); HEMATOCRIT 48.6 % (36-48); LYMPHOCYTES # (AUTO) 1.9 K/uL (1.0-5.5); LYMPHOCYTES % (AUTO) 21.2 % (20.5-51.5); MEAN CORPUSCULAR HEMOGLOBIN 31 pg (27-31); MEAN CORPUSCULAR HGB CONC 33 % (32-36); MEAN CORPUSCULAR VOLUME 94 fL (79.0-98.0); MONOCYTES # (AUTO) 0.5 K/uL (0.0-1.0); MONOCYTES % (AUTO) 5.7 % (1.7-9.3); NEUTROPHILS # (AUTO) 6.5 K/uL (1.8-7.7); NEUTROPHILS % (AUTO) 70.6 % (40.0-70.0); PLATELET COUNT (AUTO) 273 K/uL (130-430); RED BLOOD CELL COUNT(AUTO) 5.21 MIL/uL (4.2-6.2); RED CELL DISTRIBUTION WIDTH 14.8 % (9.0-15.0); WHITE BLOOD COUNT (AUTO) 9.2 K/uL (4.8-10.8)
[2023-05-28 06:20] LABS: ALBUMIN 1.7 g/dL (3.4-4.8); CALCIUM 8.3 mg/dL (8.4-11.0); CREATININE 1.86 mg/dL (0.55-1.30); POTASSIUM 4.6 mmol/L (3.5-5.1); TOTAL BILIRUBIN 0.4 mg/dL (0.0-1.0); TOTAL PROTEIN, SERUM 5.3 g/dL (6.4-8.3)
[2023-05-28] MEDS: INSULIN LISPRO SLIDING SCALE 100 UNITS/ML, 3 ML VIAL (humaLOG) SUBCUT PRN ×4 (06:43→21:14)
[2023-05-28] MEDS: CARVEDILOL 6.25 MG TABLET (COREG) PO SCH ×2 (09:34→21:19)
[2023-05-28] MEDS: SERTRALINE HCL 50 MG TABLET PO SCH (09:35)
[2023-05-28] MEDS: EMPAGLIFLOZIN 10 MG TABLET PO SCH (09:37)
[2023-05-28] MEDS: APIXABAN 2.5 MG TABLET PO SCH ×2 (09:38→21:18)
[2023-05-28] MEDS: ACETAMINOPHEN 325 MG TABLET PO PRN (14:46)
[2023-05-28] MEDS: SIMETHICONE 80 MG TAB.CHEW PO SCH (21:46)
[2023-05-29] VITALS: BP_SYST 111; PULSE 75; RESP 18; TEMP 97.8; O2SAT 97
[2023-05-29 08:00] VITALS: BP_SYST 109; PULSE 70; RESP 16; TEMP 97.6; O2SAT 97; O2SAT 98
[2023-05-29] MEDS: SIMETHICONE 80 MG TAB.CHEW PO SCH ×3 (09:55→20:29)
[2023-05-29] MEDS: CARVEDILOL 6.25 MG TABLET (COREG) PO SCH ×2 (09:56→20:34)
[2023-05-29] MEDS: APIXABAN 2.5 MG TABLET PO SCH ×2 (09:57→20:31)
[2023-05-29] MEDS: SERTRALINE HCL 50 MG TABLET PO SCH (09:57)
[2023-05-29] MEDS: EMPAGLIFLOZIN 10 MG TABLET PO SCH (10:09)
[2023-05-29 11:59] VITALS: BP_SYST 104; PULSE 74; RESP 20; TEMP 98.4; O2SAT 99
[2023-05-29 16:30] VITALS: BP_SYST 98; PULSE 87; RESP 16; TEMP 98.2; O2SAT 96
[2023-05-29] MEDS: INSULIN LISPRO SLIDING SCALE 100 UNITS/ML, 3 ML VIAL (humaLOG) SUBCUT PRN ×2 (17:18→21:02)
[2023-05-29 17:23] LABS: HCG,QUAL RESULT NEGATIVE (NEGATIVE)
[2023-05-29 20:00] VITALS: BP_SYST 101; PULSE 70; RESP 20; TEMP 97; O2SAT 100
[2023-05-29 21:10] VITALS: BP_SYST 101; PULSE 70; RESP 20; TEMP 97; O2SAT 100
[2023-05-30] VITALS (7 sets, daily range): BP systolic 99–113; PULSE 64–74; RESP 16–18; TEMP 97–97.8; O2SAT 98–100
[2023-05-30] MEDS: INSULIN LISPRO SLIDING SCALE 100 UNITS/ML, 3 ML VIAL (humaLOG) SUBCUT PRN ×4 (06:31→20:22)
[2023-05-30] MEDS: SIMETHICONE 80 MG TAB.CHEW PO SCH ×3 (11:03→20:23)
[2023-05-30] MEDS: EMPAGLIFLOZIN 10 MG TABLET PO SCH (11:03)
[2023-05-30] MEDS: CARVEDILOL 6.25 MG TABLET (COREG) PO SCH ×2 (11:05→20:24)
[2023-05-30] MEDS: SERTRALINE HCL 50 MG TABLET PO SCH (11:05)
[2023-05-30] MEDS: APIXABAN 2.5 MG TABLET PO SCH ×2 (11:15→20:23)
[2023-05-31 05:44] LABS: BASOPHILS # (AUTO) 0.1 K/uL (0.0-0.2); BASOPHILS % (AUTO) 1.3 % (0.0-2.0); EOSINOPHILS # (AUTO) 0.2 K/uL (0.0-0.4); EOSINOPHILS % (AUTO) 2.4 % (0.0-4.0); HEMATOCRIT 45.8 % (36-48); HEMOGLOBIN 15.3 g/dL (12.0-16.0); LYMPHOCYTES # (AUTO) 3.1 K/uL (1.0-5.5); LYMPHOCYTES % (AUTO) 42.4 % (20.5-51.5); MEAN CORPUSCULAR HEMOGLOBIN 31 pg (27-31); MEAN CORPUSCULAR HGB CONC 33 % (32-36); MEAN CORPUSCULAR VOLUME 94 fL (79.0-98.0); MONOCYTES # (AUTO) 0.6 K/uL (0.0-1.0); MONOCYTES % (AUTO) 8.7 % (1.7-9.3); NEUTROPHILS # (AUTO) 3.3 K/uL (1.8-7.7); NEUTROPHILS % (AUTO) 45.2 % (40.0-70.0); PLATELET COUNT (AUTO) 288 K/uL (130-430); RED CELL DISTRIBUTION WIDTH 14.7 % (9.0-15.0); WHITE BLOOD COUNT (AUTO) 7.3 K/uL (4.8-10.8)
[2023-05-31 06:00] LABS: CALCIUM 8.1 mg/dL (8.4-11.0); CREATININE 1.93 mg/dL (0.55-1.30)
[2023-05-31 08:00] VITALS: O2SAT 97
[2023-05-31] MEDS: CARVEDILOL 6.25 MG TABLET (COREG) PO SCH (12:18)
[2023-05-31] MEDS: SERTRALINE HCL 50 MG TABLET PO SCH (12:20)
[2023-05-31] MEDS: APIXABAN 2.5 MG TABLET PO SCH (12:21)
[2023-05-31] MEDS: EMPAGLIFLOZIN 10 MG TABLET PO SCH (12:25)
== END 2023-05-31 13:04 | disposition home or self-care (01) | DRG 194 ==
LOC: SED 17:43 → STU 19:24 → SMU 05-29 12:28
PROVIDERS: ADMIT Internal Medicine; ATTEND Internal Medicine
DX: I13.0 Hypertensive heart and chronic kidney disease with heart failure and stage 1 through stage 4 chronic kidney disease, or unspecified chronic kidney disease (principal); J96.01 Acute respiratory failure with hypoxia; N17.0 Acute kidney failure with tubular necrosis; I50.43 Acute on chronic combined systolic (congestive) and diastolic (congestive) heart failure; I42.0 Dilated cardiomyopathy; F41.9 Anxiety disorder, unspecified; E11.65 Type 2 diabetes mellitus with hyperglycemia; I48.0 Paroxysmal atrial fibrillation; Z20.822 Contact with and (suspected) exposure to COVID-19; F33.2 Major depressive disorder, recurrent severe without psychotic features; N18.30 Chronic kidney disease, stage 3 unspecified; E11.22 Type 2 diabetes mellitus with diabetic chronic kidney disease; Z79.4 Long term (current) use of insulin; Z79.82 Long term (current) use of aspirin; Z79.84 Long term (current) use of oral hypoglycemic drugs; Z79.01 Long term (current) use of anticoagulants; Z79.899 Other long term (current) drug therapy; Z86.718 Personal history of other venous thrombosis and embolism
CPT/HCPCS: 36415; 71045; 80048; 80053; 80307; 81000; 82962; 83037; 83880; 84484; 84702; 84703; 85025; 87497; 93005; 99285; G0378; J1940

== ENCOUNTER 2023-06-08 03:52 | Inpatient (IN) | payer MEDICAID ==
[~2023-06-08] VITALS: Ht 160 cm; Wt 60.8 kg
[~2023-06-08 03:52] MED LIST changes: +APIX5TAB PO; +ASPI-1393 PO; +CARV3.1246 PO; +EMPA25TA PO; +FURO40TA5 PO; +INSU100V53 SUBCUT; +LANTUS
[2023-06-08 04:00] VITALS: BP_SYST 141; PULSE 69; RESP 16; TEMP 98; O2SAT 97
[2023-06-08 04:50] LABS: BASOPHILS # (AUTO) 0.1 K/uL (0.0-0.2); BASOPHILS % (AUTO) 0.7 % (0.0-2.0); EOSINOPHILS # (AUTO) 0.1 K/uL (0.0-0.4); EOSINOPHILS % (AUTO) 0.9 % (0.0-4.0); HEMATOCRIT 50.1 % (36-48); HEMOGLOBIN 16.2 g/dL (12.0-16.0); LYMPHOCYTES # (AUTO) 1.1 K/uL (1.0-5.5); LYMPHOCYTES % (AUTO) 12.6 % (20.5-51.5); MEAN CORPUSCULAR HEMOGLOBIN 31 pg (27-31); MEAN CORPUSCULAR HGB CONC 32 % (32-36); MEAN CORPUSCULAR VOLUME 95 fL (79.0-98.0); MONOCYTES # (AUTO) 0.4 K/uL (0.0-1.0); MONOCYTES % (AUTO) 4.7 % (1.7-9.3); NEUTROPHILS # (AUTO) 6.9 K/uL (1.8-7.7); NEUTROPHILS % (AUTO) 81.1 % (40.0-70.0); PLATELET COUNT (AUTO) 206 K/uL (130-430); RED BLOOD CELL COUNT(AUTO) 5.31 MIL/uL (4.2-6.2); RED CELL DISTRIBUTION WIDTH 14.4 % (9.0-15.0); WHITE BLOOD COUNT (AUTO) 8.6 K/uL (4.8-10.8)
[2023-06-08] MEDS ORDERED: MORPHINE 2 MG/ML INJ. SYRINGE ONE (04:59)
[2023-06-08] MEDS ORDERED: MORPHINE 2 MG/ML INJ. SYRINGE IVP ONE (05:00)
[2023-06-08 05:02] LABS: ANION GAP 8 (5-15); CALCIUM 8.1 mg/dL (8.4-11.0); CARBON DIOXIDE 24 mmol/L (23-29); CHLORIDE 103 mmol/L (98-107); CREATININE 2.01 mg/dL (0.55-1.30); GFR AFRICAN AMERICAN 34 mL/min (>90); GLUCOSE 382 mg/dL (74-106); POTASSIUM 4.2 mmol/L (3.5-5.1); SODIUM SERUM 135 mmol/L (136-145); UREA NITROGEN, BLOOD 36 mg/dL (8-21)
[2023-06-08 05:14] LABS: GFR NON AFRICAN-AMERICAN 28 mL/min (>90)
[2023-06-08 05:22] LABS: ALANINE AMINOTRANSFERASE 16 U/L (12-78); ASPARTATE AMINOTRANSFERASE 19 U/L (10-37); TOTAL BILIRUBIN 0.3 mg/dL (0.0-1.0); TOTAL PROTEIN, SERUM 5.8 g/dL (6.4-8.3)
[2023-06-08 05:56] LABS: AMYLASE 70 U/L (0-100); LIPASE 255 U/L (73-393)
[2023-06-08 06:26] LABS: BARBITURATE, URINE NEGATIVE (NEG <=200); BENZODIAZEPINE, URINE NEGATIVE (NEG <=150); CANNABINOID, URINE NEGATIVE (NEG <=50); COCAINE, URINE NEGATIVE (NEG <=150); METHAMPHETAMINES SCREEN,URINE NEGATIVE (NEG <=500); OPIATE, URINE NEGATIVE (NEG <=100); PHENCYCLIDINE SCREEN,URINE NEGATIVE (NEG <=25); URINE AMPHETAMINE NEGATIVE (NEG <=500); URINE METHADONE NEGATIVE (NEG <=200); URINE OXYCODONE SCREEN NEGATIVE (NEG <=100); URINE PROPOXYPHENE SCREEN NEGATIVE (NEG <=300)
[2023-06-08 06:27] LABS: UR TRICYCLIC ANTIDEPRESSANTS NEGATIVE (NEG <=300)
[2023-06-08 08:00] VITALS: BP_SYST 120; PULSE 78; RESP 16; TEMP 97.5; O2SAT 98
[2023-06-08] MEDS ORDERED: DOCUSATE SODIUM 100 MG CAPSULE PO PRN (08:15)
[2023-06-08] MEDS ORDERED: POTASSIUM CHLORIDE 20 MEQ TAB.PRT.SR PO PRN (08:15)
[2023-06-08] MEDS ORDERED: LORazepam 2 MG/ML VIAL IVP PRN (08:15)
[2023-06-08] MEDS ORDERED: ACETAMINOPHEN 325 MG TABLET PO PRN ×2 (08:15→09:30)
[2023-06-08] MEDS ORDERED: ONDANSETRON HCL 4 MG/2 ML VIAL IVP PRN (08:15)
[2023-06-08] MEDS ORDERED: NALOXONE HCL 0.4 MG/ML AMP (NARCAN) IVP PRN ×2 (08:15)
[2023-06-08] MEDS ORDERED: MUPIROCIN 2% TOPICAL OINTMENT 22 GM NS PRN (08:15)
[2023-06-08] MEDS ORDERED: MAGNESIUM SULFATE 50 ML IV PRN (08:15)
[2023-06-08] MEDS ORDERED: ZOLPIDEM TARTRATE 5 MG TABLET PO PRN (08:15)
[2023-06-08] MEDS ORDERED: MORPHINE 2 MG/ML INJ. SYRINGE IVP PRN ×2 (08:15)
[2023-06-08] MEDS ORDERED: CARVEDILOL 3.125 MG TABLET (COREG) PO SCH (09:00)
[2023-06-08] MEDS ORDERED: HEPARIN SODIUM,PORCINE 5,000 UNITS/ML VIAL SUBCUT SCH (09:00)
[2023-06-08] MEDS ORDERED: D5W 1,000 ML IV PRN (09:45)
[2023-06-08] MEDS ORDERED: CARVEDILOL 6.25 MG TABLET (COREG) PO ONE (09:45)
[2023-06-08] MEDS ORDERED: DEXTROSE 50%-WATER 50 ML DISP.SYRIN IVP PRN (09:45)
[2023-06-08] MEDS ORDERED: GLUCOSE (DEXTROSE) ORAL GEL -Adults PO PRN (09:45)
[2023-06-08 10:00] VITALS: BP_SYST 139; PULSE 80; RESP 18; TEMP 98.1; O2SAT 98
[2023-06-08] MEDS: ASPIRIN 81 MG TABLET(ECOTRIN) PO SCH (10:57)
[2023-06-08] MEDS: FUROSEMIDE 40 MG/4 ML VIAL IVP SCH (10:58)
[2023-06-08] MEDS: APIXABAN 2.5 MG TABLET PO SCH ×2 (10:58→21:49)
[2023-06-08] MEDS: D5NS 1,000 ML IV SCH (10:59)
[2023-06-08 11:30] VITALS: BP_SYST 125; PULSE 82; RESP 16; TEMP 98; O2SAT 98
[2023-06-08] MEDS: INSULIN REGULAR, HUMAN 100 UNITS/ML, 3 ML VIAL (humuLIN R) SUBCUT PRN ×2 (12:10→21:48)
[2023-06-08 17:30] VITALS: BP_SYST 109; PULSE 70; RESP 17; TEMP 98; O2SAT 99
[2023-06-08 20:00] VITALS: BP_SYST 116; PULSE 110; RESP 20; TEMP 97.9; O2SAT 100
[2023-06-08] MEDS: CARVEDILOL 6.25 MG TABLET (COREG) PO SCH (21:49)
[2023-06-09 00:58] VITALS: BP_SYST 112; PULSE 71; RESP 18; TEMP 98.2; O2SAT 97
[2023-06-09] MEDS: D5NS 1,000 ML IV SCH (04:15)
[2023-06-09] MEDS: INSULIN REGULAR, HUMAN 100 UNITS/ML, 3 ML VIAL (humuLIN R) SUBCUT PRN ×2 (06:32→17:58)
[2023-06-09 07:44] LABS: BASOPHILS # (AUTO) 0.1 K/uL (0.0-0.2); BASOPHILS % (AUTO) 1.3 % (0.0-2.0); EOSINOPHILS # (AUTO) 0.2 K/uL (0.0-0.4); EOSINOPHILS % (AUTO) 3.3 % (0.0-4.0); HEMATOCRIT 46.3 % (36-48); LYMPHOCYTES # (AUTO) 2.3 K/uL (1.0-5.5); LYMPHOCYTES % (AUTO) 33.7 % (20.5-51.5); MEAN CORPUSCULAR HEMOGLOBIN 30 pg (27-31); MEAN CORPUSCULAR HGB CONC 32 % (32-36); MEAN CORPUSCULAR VOLUME 94 fL (79.0-98.0); MONOCYTES # (AUTO) 0.6 K/uL (0.0-1.0); MONOCYTES % (AUTO) 8.1 % (1.7-9.3); NEUTROPHILS # (AUTO) 3.7 K/uL (1.8-7.7); NEUTROPHILS % (AUTO) 53.6 % (40.0-70.0); PLATELET COUNT (AUTO) 181 K/uL (130-430); RED BLOOD CELL COUNT(AUTO) 4.94 MIL/uL (4.2-6.2); RED CELL DISTRIBUTION WIDTH 14.3 % (9.0-15.0); WHITE BLOOD COUNT (AUTO) 6.9 K/uL (4.8-10.8)
[2023-06-09 08:00] VITALS: BP_SYST 114; PULSE 75; RESP 18; TEMP 97.1; O2SAT 97
[2023-06-09 08:00] LABS: CREATININE 1.61 mg/dL (0.55-1.30); POTASSIUM 3.7 mmol/L (3.5-5.1)
[2023-06-09] MEDS: ASPIRIN 81 MG TABLET(ECOTRIN) PO SCH (09:18)
[2023-06-09] MEDS: CARVEDILOL 6.25 MG TABLET (COREG) PO SCH (09:18)
[2023-06-09] MEDS: FUROSEMIDE 40 MG/4 ML VIAL IVP SCH (09:19)
[2023-06-09] MEDS: APIXABAN 2.5 MG TABLET PO SCH (09:19)
[2023-06-09 12:00] VITALS: BP_SYST 103; PULSE 69; RESP 18; TEMP 97.4; O2SAT 97
[2023-06-09 16:52] VITALS: BP_SYST 117; PULSE 66; RESP 16; TEMP 97.5; O2SAT 95
== END 2023-06-09 18:56 | disposition home or self-care (01) | DRG 282 ==
LOC: SED 03:52 → STU 05:36
PROVIDERS: ADMIT General Practice; ATTEND General Practice
DX: K85.90 Acute pancreatitis without necrosis or infection, unspecified (principal); N17.0 Acute kidney failure with tubular necrosis; I50.43 Acute on chronic combined systolic (congestive) and diastolic (congestive) heart failure; E44.0 Moderate protein-calorie malnutrition; F15.10 Other stimulant abuse, uncomplicated; I42.7 Cardiomyopathy due to drug and external agent; I13.0 Hypertensive heart and chronic kidney disease with heart failure and stage 1 through stage 4 chronic kidney disease, or unspecified chronic kidney disease; N18.4 Chronic kidney disease, stage 4 (severe); E11.22 Type 2 diabetes mellitus with diabetic chronic kidney disease; T50.995A Adverse effect of other drugs, medicaments and biological substances, initial encounter; I42.0 Dilated cardiomyopathy; Z79.899 Other long term (current) drug therapy; Z79.01 Long term (current) use of anticoagulants; Z79.4 Long term (current) use of insulin; Y92.89 Other specified places as the place of occurrence of the external cause; Z68.23 Body mass index [BMI] 23.0-23.9, adult
CPT/HCPCS: 36415; 71045; 76376; 78579; 78580-TC; 80048; 80053; 80307; 82150; 82962; 83037; 83690; 83735; 83880; 84484; 85025; 85379; 87081; 93005; 93970; 96374; 99285; A9539; A9540; G0378; J1940; J2270

== ENCOUNTER 2023-09-12 19:48 | Inpatient (IN) | payer MEDICAID ==
[~2023-09-12] VITALS: Ht 160 cm; Wt 57.3 kg
[~2023-09-12 19:48] MED LIST changes: +APIX2.5T PO; -ASPI-1393 PO; -COR6.25 PO; -EMPA25TA PO; +FOLI1CAP7 PO; -FURO40TA5 PO; -IBUP-2101 PO; +LEVE500T9 PO; +LIP20 PO; -METF500S9 PO
[2023-09-12 20:25] VITALS: BP_SYST 111; PULSE 90; RESP 16; TEMP 98.2; O2SAT 98
[2023-09-12] MEDS ORDERED: ASPIRIN 81 MG TAB.CHEW PO ONE (23:30)
[2023-09-13 01:00] LABS: BASOPHILS # (AUTO) 0.1 K/uL (0.0-0.2); BASOPHILS % (AUTO) 1.7 % (0.0-2.0); EOSINOPHILS # (AUTO) 0.1 K/uL (0.0-0.4); EOSINOPHILS % (AUTO) 2.5 % (0.0-4.0); HEMATOCRIT 42.9 % (36-48); HEMOGLOBIN 13.9 g/dL (12.0-16.0); LYMPHOCYTES # (AUTO) 2.2 K/uL (1.0-5.5); LYMPHOCYTES % (AUTO) 40.7 % (20.5-51.5); MEAN CORPUSCULAR HEMOGLOBIN 30 pg (27-31); MEAN CORPUSCULAR HGB CONC 33 % (32-36); MEAN CORPUSCULAR VOLUME 92 fL (79.0-98.0); MONOCYTES # (AUTO) 0.5 K/uL (0.0-1.0); MONOCYTES % (AUTO) 9.6 % (1.7-9.3); NEUTROPHILS # (AUTO) 2.5 K/uL (1.8-7.7); NEUTROPHILS % (AUTO) 45.5 % (40.0-70.0); PLATELET COUNT (AUTO) 223 K/uL (130-430); RED BLOOD CELL COUNT(AUTO) 4.67 MIL/uL (4.2-6.2); RED CELL DISTRIBUTION WIDTH 14.8 % (9.0-15.0); WHITE BLOOD COUNT (AUTO) 5.5 K/uL (4.8-10.8)
[2023-09-13 01:11] LABS: ALANINE AMINOTRANSFERASE 26 U/L (12-78); ALBUMIN 2.3 g/dL (3.4-4.8); ANION GAP 12 (5-15); ASPARTATE AMINOTRANSFERASE 29 U/L (10-37); CALCIUM 8.6 mg/dL (8.4-11.0); CARBON DIOXIDE 21 mmol/L (23-29); CHLORIDE 100 mmol/L (98-107); CREATININE 2.15 mg/dL (0.55-1.30); GFR AFRICAN AMERICAN 32 mL/min (>90); GLUCOSE 236 mg/dL (74-106); POTASSIUM 4.7 mmol/L (3.5-5.1); PROTHROMBIN TIME 10.3 SECS (9.5-12.5); SODIUM SERUM 133 mmol/L (136-145); TOTAL BILIRUBIN 0.2 mg/dL (0.0-1.0); TOTAL PROTEIN, SERUM 6.4 g/dL (6.4-8.3); UREA NITROGEN, BLOOD 61 mg/dL (8-21)
[2023-09-13 01:26] LABS: BILIRUBIN,DIRECT 0.1 mg/dL (0.0-0.3)
[2023-09-13 01:29] LABS: GFR NON AFRICAN-AMERICAN 26 mL/min (>90)
[2023-09-13] MEDS ORDERED: EMPA25TA PO (04:40)
[2023-09-13] MEDS: NACL 0.9% 1,000 ML IV SCH ×2 (10:30→22:04)
[2023-09-13] MEDS ORDERED: ONDANSETRON HCL 4 MG/2 ML VIAL IVP PRN (10:30)
[2023-09-13] MEDS ORDERED: LORazepam 2 MG/ML VIAL IVP PRN (10:30)
[2023-09-13] MEDS ORDERED: NALOXONE HCL 0.4 MG/ML AMP (NARCAN) IVP PRN ×2 (10:30)
[2023-09-13] MEDS ORDERED: FUROSEMIDE 40 MG TABLET PO SCH (10:30)
[2023-09-13] MEDS ORDERED: ACETAMINOPHEN 325 MG TABLET PO PRN ×2 (10:30→12:30)
[2023-09-13] MEDS ORDERED: INSULIN REGULAR, HUMAN 10 UNITS/0.1 ML, 3 ML VIAL ONE (10:36)
[2023-09-13] MEDS ORDERED: CARVEDILOL 3.125 MG TABLET (COREG) PO ONE (12:30)
[2023-09-13] MEDS ORDERED: FUROSEMIDE 40 MG/4 ML VIAL IVP ONE (12:30)
[2023-09-13] MEDS ORDERED: ASPIRIN 81 MG TABLET(ECOTRIN) PO ONE (12:30)
[2023-09-13] MEDS ORDERED: ATORVASTATIN 20 MG TABLET PO ONE (12:30)
[2023-09-13] MEDS ORDERED: EMPAGLIFLOZIN 10 MG TABLET PO ONE (12:45)
[2023-09-13] MEDS ORDERED: HYDROcodone/ACETAMIN 5-325 MG TAB (NORCO/ VICODIN) PO PRN (12:45)
[2023-09-13 21:30] VITALS: O2SAT 96
[2023-09-13] MEDS: CARVEDILOL 3.125 MG TABLET (COREG) PO SCH (21:47)
[2023-09-13] MEDS: levETIRAcetam 500 MG TABLET PO SCH (21:49)
[2023-09-13] MEDS: APIXABAN 2.5 MG TABLET PO SCH (22:06)
[2023-09-13] MEDS: INSULIN REGULAR, HUMAN 100 UNITS/ML, 3 ML VIAL (humuLIN R) SUBCUT PRN (22:18)
[2023-09-14 00:24] VITALS: BP_SYST 107; PULSE 77; RESP 20; TEMP 97.9; O2SAT 97
[2023-09-14 06:13] LABS: BASOPHILS # (AUTO) 0.1 K/uL (0.0-0.2); BASOPHILS % (AUTO) 1.3 % (0.0-2.0); EOSINOPHILS # (AUTO) 0.2 K/uL (0.0-0.4); EOSINOPHILS % (AUTO) 2.9 % (0.0-4.0); HEMATOCRIT 38.5 % (36-48); HEMOGLOBIN 12.6 g/dL (12.0-16.0); LYMPHOCYTES # (AUTO) 1.8 K/uL (1.0-5.5); LYMPHOCYTES % (AUTO) 28.7 % (20.5-51.5); MEAN CORPUSCULAR HEMOGLOBIN 30 pg (27-31); MEAN CORPUSCULAR HGB CONC 33 % (32-36); MEAN CORPUSCULAR VOLUME 92 fL (79.0-98.0); MONOCYTES # (AUTO) 0.6 K/uL (0.0-1.0); MONOCYTES % (AUTO) 9.1 % (1.7-9.3); NEUTROPHILS # (AUTO) 3.6 K/uL (1.8-7.7); PLATELET COUNT (AUTO) 229 K/uL (130-430); RED BLOOD CELL COUNT(AUTO) 4.21 MIL/uL (4.2-6.2); RED CELL DISTRIBUTION WIDTH 14.4 % (9.0-15.0); WHITE BLOOD COUNT (AUTO) 6.1 K/uL (4.8-10.8)
[2023-09-14 06:24] LABS: CALCIUM 9.1 mg/dL (8.4-11.0); CREATININE 2.18 mg/dL (0.55-1.30); PHOSPHORUS 5.5 mg/dL (2.7-4.5); POTASSIUM 4.4 mmol/L (3.5-5.1)
[2023-09-14] MEDS: NACL 0.9% 1,000 ML IV SCH (06:30)
[2023-09-14] MEDS: INSULIN REGULAR, HUMAN 100 UNITS/ML, 3 ML VIAL (humuLIN R) SUBCUT PRN ×3 (07:00→18:03)
[2023-09-14 07:59] VITALS: BP_SYST 106; PULSE 95; RESP 16; TEMP 98.4; O2SAT 100
[2023-09-14] MEDS: CARVEDILOL 3.125 MG TABLET (COREG) PO SCH ×2 (08:48→20:36)
[2023-09-14] MEDS: ASPIRIN 81 MG TABLET(ECOTRIN) PO SCH (08:49)
[2023-09-14] MEDS: levETIRAcetam 500 MG TABLET PO SCH ×2 (08:49→20:36)
[2023-09-14] MEDS: NEPHROVITE, (FOLIC ACID/VITAMIN B COMP W-C 1 TAB) PO SCH (08:49)
[2023-09-14] MEDS: APIXABAN 2.5 MG TABLET PO SCH ×2 (08:50→20:37)
[2023-09-14] MEDS: ATORVASTATIN 20 MG TABLET PO SCH (08:50)
[2023-09-14] MEDS: EMPAGLIFLOZIN 10 MG TABLET PO SCH (08:51)
[2023-09-14] MEDS ORDERED: FUROSEMIDE 40 MG/4 ML VIAL IVP SCH (09:00)
[2023-09-14] MEDS ORDERED: FOLIC ACID PO SCH (09:00)
[2023-09-14] MEDS ORDERED: VITAMIN B COMP W C PO SCH (09:00)
[2023-09-14 12:00] VITALS: BP_SYST 98; PULSE 70; RESP 18; TEMP 98; O2SAT 100
[2023-09-14 14:08] LABS: BARBITURATE, URINE NEGATIVE (NEG <=200); BENZODIAZEPINE, URINE NEGATIVE (NEG <=150); CANNABINOID, URINE NEGATIVE (NEG <=50); COCAINE, URINE NEGATIVE (NEG <=150); METHAMPHETAMINES SCREEN,URINE NEGATIVE (NEG <=500); OPIATE, URINE NEGATIVE (NEG <=100); PHENCYCLIDINE SCREEN,URINE NEGATIVE (NEG <=25); URINE AMPHETAMINE NEGATIVE (NEG <=500); URINE METHADONE NEGATIVE (NEG <=200); URINE OXYCODONE SCREEN NEGATIVE (NEG <=100)
[2023-09-14 14:09] LABS: UR TRICYCLIC ANTIDEPRESSANTS NEGATIVE (NEG <=300)
[2023-09-14] MEDS: HYDROcodone/ACETAMIN 5-325 MG TAB (NORCO/ VICODIN) PO PRN (15:31)
[2023-09-14 16:00] VITALS: BP_SYST 118; PULSE 70; RESP 18; TEMP 98; O2SAT 100
[2023-09-14 20:00] VITALS: BP_SYST 103; PULSE 69; RESP 18; TEMP 97.3; O2SAT 100
[2023-09-14 23:18] VITALS: O2SAT 100
[2023-09-15] VITALS: BP_SYST 111; PULSE 72; RESP 18; TEMP 98; O2SAT 99
[2023-09-15] MEDS: HYDROcodone/ACETAMIN 5-325 MG TAB (NORCO/ VICODIN) PO PRN (00:46)
[2023-09-15 01:36] VITALS: BP_SYST 103; PULSE 69; RESP 18; TEMP 97.3; O2SAT 100
[2023-09-15 05:17] LABS: WHITE BLOOD COUNT (AUTO) 6.8 K/uL (4.8-10.8)
[2023-09-15 05:18] LABS: BASOPHILS # (AUTO) 0.1 K/uL (0.0-0.2); BASOPHILS % (AUTO) 1.3 % (0.0-2.0); EOSINOPHILS # (AUTO) 0.1 K/uL (0.0-0.4); EOSINOPHILS % (AUTO) 2.1 % (0.0-4.0); LYMPHOCYTES # (AUTO) 2.6 K/uL (1.0-5.5); LYMPHOCYTES % (AUTO) 38.5 % (20.5-51.5); MEAN CORPUSCULAR HEMOGLOBIN 30 pg (27-31); MEAN CORPUSCULAR HGB CONC 33 % (32-36); MEAN CORPUSCULAR VOLUME 92 fL (79.0-98.0); MONOCYTES # (AUTO) 0.6 K/uL (0.0-1.0); MONOCYTES % (AUTO) 9.2 % (1.7-9.3); NEUTROPHILS # (AUTO) 3.3 K/uL (1.8-7.7); NEUTROPHILS % (AUTO) 48.9 % (40.0-70.0); PLATELET COUNT (AUTO) 249 K/uL (130-430); RED BLOOD CELL COUNT(AUTO) 4.66 MIL/uL (4.2-6.2); RED CELL DISTRIBUTION WIDTH 14.9 % (9.0-15.0)
[2023-09-15 05:46] LABS: ALBUMIN 2.3 g/dL (3.4-4.8); CALCIUM 9.4 mg/dL (8.4-11.0); CREATININE 2.43 mg/dL (0.55-1.30); PHOSPHORUS 6.3 mg/dL (2.7-4.5); POTASSIUM 5.2 mmol/L (3.5-5.1); TOTAL BILIRUBIN 0.7 mg/dL (0.0-1.0); TOTAL PROTEIN, SERUM 6.2 g/dL (6.4-8.3)
[2023-09-15 08:00] VITALS: O2SAT 99
[2023-09-15 09:06] VITALS: BP_SYST 109; PULSE 74; RESP 18; TEMP 97.4; O2SAT 99
[2023-09-15] MEDS ORDERED: FURO-150 PO (10:38)
[2023-09-15] MEDS ORDERED: SODIUM POLYSTYRENE SULFONATE 15 GM/60 ML UDBTL PO ONE (10:45)
[2023-09-15] MEDS: NEPHROVITE, (FOLIC ACID/VITAMIN B COMP W-C 1 TAB) PO SCH (11:15)
[2023-09-15] MEDS: CARVEDILOL 3.125 MG TABLET (COREG) PO SCH (11:17)
[2023-09-15] MEDS: ASPIRIN 81 MG TABLET(ECOTRIN) PO SCH (11:19)
[2023-09-15] MEDS: levETIRAcetam 500 MG TABLET PO SCH ×2 (11:19→11:21)
[2023-09-15] MEDS: APIXABAN 2.5 MG TABLET PO SCH (11:19)
[2023-09-15] MEDS: EMPAGLIFLOZIN 10 MG TABLET PO SCH (11:25)
[2023-09-15] MEDS: ATORVASTATIN 20 MG TABLET PO SCH (11:29)
[2023-09-15 12:00] VITALS: BP_SYST 109; PULSE 74; RESP 18; TEMP 97.4; O2SAT 99
[2023-09-15 13:07] VITALS: BP_SYST 122; PULSE 89; RESP 20; TEMP 98.7; O2SAT 98
[2023-09-15] MEDS: INSULIN REGULAR, HUMAN 100 UNITS/ML, 3 ML VIAL (humuLIN R) SUBCUT PRN (13:49)
[2023-09-16] MEDS ORDERED: FUROSEMIDE 20 MG TABLET PO SCH (09:00)
== END 2023-09-15 14:40 | disposition home or self-care (01) | DRG 194 ==
LOC: SED 19:48 → STU 09-13 02:12 → SMU 09-14 12:12
PROVIDERS: ADMIT Preventive Medicine Preventive Medicine/Occupational Environmental Medicine; ATTEND Preventive Medicine Preventive Medicine/Occupational Environmental Medicine
DX: I13.0 Hypertensive heart and chronic kidney disease with heart failure and stage 1 through stage 4 chronic kidney disease, or unspecified chronic kidney disease (principal); E43 Unspecified severe protein-calorie malnutrition; N17.9 Acute kidney failure, unspecified; E83.39 Other disorders of phosphorus metabolism; I42.7 Cardiomyopathy due to drug and external agent; E87.1 Hypo-osmolality and hyponatremia; I50.23 Acute on chronic systolic (congestive) heart failure; T43.625A Adverse effect of amphetamines, initial encounter; I25.10 Atherosclerotic heart disease of native coronary artery without angina pectoris; G40.909 Epilepsy, unspecified, not intractable, without status epilepticus; E88.09 Other disorders of plasma-protein metabolism, not elsewhere classified; E87.5 Hyperkalemia; E11.65 Type 2 diabetes mellitus with hyperglycemia; E11.22 Type 2 diabetes mellitus with diabetic chronic kidney disease; N18.32 Chronic kidney disease, stage 3b; Z79.01 Long term (current) use of anticoagulants; Z86.73 Personal history of transient ischemic attack (TIA), and cerebral infarction without residual deficits; Z86.718 Personal history of other venous thrombosis and embolism; Y92.89 Other specified places as the place of occurrence of the external cause; Z68.22 Body mass index [BMI] 22.0-22.9, adult
CPT/HCPCS: 36415; 71045; 76770; 78579; 78580-TC; 80048; 80053; 80076; 80307; 82962; 83735; 83880; 84100; 84484; 85025; 85379; 85610-TC; 85730-TC; 87081; 93005; 93970; 99285; A9539; A9540; G0378; J1815; J1940

== ENCOUNTER 2023-09-22 01:48 | Emergency (ER) | payer MEDICAID ==
[~2023-09-22] VITALS: Ht 160 cm; Wt 56.7 kg
[~2023-09-22 01:48] MED LIST changes: -APIX5TAB PO; +EMPA25TA PO; -FURO-149 PO; +FURO-150 PO
[2023-09-22 02:00] VITALS: BP_SYST 115; PULSE 78; RESP 18; TEMP 97.9; O2SAT 97
[2023-09-22] MEDS ORDERED: MED4 PO (03:01)
== END 2023-09-22 03:20 | disposition home or self-care (01) ==
LOC: SED 01:48
DX: J45.909 Unspecified asthma, uncomplicated (principal); R05.9 Cough, unspecified; R56.9 Unspecified convulsions; I11.0 Hypertensive heart disease with heart failure; I50.9 Heart failure, unspecified; E11.9 Type 2 diabetes mellitus without complications; F15.10 Other stimulant abuse, uncomplicated; Z79.899 Other long term (current) drug therapy
CPT/HCPCS: 71045; 81025; 99283

== ENCOUNTER 2023-09-27 15:55 | Emergency (ER) | payer MEDICAID ==
[~2023-09-27] VITALS: Ht 160 cm; Wt 55.8 kg
[~2023-09-27 15:55] MED LIST changes: +MED4 PO
[2023-09-27 16:10] VITALS: BP_SYST 128; PULSE 76; RESP 17; TEMP 97; O2SAT 100
[2023-09-27 16:44] LABS: BASOPHILS # (AUTO) 0.1 K/uL (0.0-0.2); BASOPHILS % (AUTO) 0.8 % (0.0-2.0); EOSINOPHILS # (AUTO) 0.1 K/uL (0.0-0.4); EOSINOPHILS % (AUTO) 1.8 % (0.0-4.0); HEMOGLOBIN 15.3 g/dL (12.0-16.0); LYMPHOCYTES # (AUTO) 2.4 K/uL (1.0-5.5); LYMPHOCYTES % (AUTO) 29.9 % (20.5-51.5); MEAN CORPUSCULAR HEMOGLOBIN 31 pg (27-31); MEAN CORPUSCULAR HGB CONC 33 % (32-36); MEAN CORPUSCULAR VOLUME 93 fL (79.0-98.0); MONOCYTES # (AUTO) 0.6 K/uL (0.0-1.0); MONOCYTES % (AUTO) 7.1 % (1.7-9.3); NEUTROPHILS # (AUTO) 4.9 K/uL (1.8-7.7); NEUTROPHILS % (AUTO) 60.4 % (40.0-70.0); PLATELET COUNT (AUTO) 264 K/uL (130-430); RED BLOOD CELL COUNT(AUTO) 4.94 MIL/uL (4.2-6.2); RED CELL DISTRIBUTION WIDTH 15.7 % (9.0-15.0); WHITE BLOOD COUNT (AUTO) 8.1 K/uL (4.8-10.8)
[2023-09-27 16:56] LABS: ALANINE AMINOTRANSFERASE 26 U/L (12-78); ALBUMIN 2.5 g/dL (3.4-4.8); ANION GAP 11 (5-15); ASPARTATE AMINOTRANSFERASE 28 U/L (10-37); CARBON DIOXIDE 21 mmol/L (23-29); CHLORIDE 104 mmol/L (98-107); CREATININE 1.95 mg/dL (0.55-1.30); GFR AFRICAN AMERICAN 36 mL/min (>90); GLUCOSE 228 mg/dL (74-106); POTASSIUM 3.9 mmol/L (3.5-5.1); SODIUM SERUM 136 mmol/L (136-145); TOTAL BILIRUBIN 0.7 mg/dL (0.0-1.0); TOTAL PROTEIN, SERUM 6.3 g/dL (6.4-8.3); UREA NITROGEN, BLOOD 41 mg/dL (8-21)
[2023-09-27 17:02] LABS: GFR NON AFRICAN-AMERICAN 29 mL/min (>90)
[2023-09-27 17:03] LABS: BILIRUBIN,DIRECT 0.3 mg/dL (0.0-0.3); CREATINE KINASE, TOTAL 59 U/L (26-192)
[2023-09-27 17:07] LABS: ACETAMINOPHEN < 1 ug/mL (1-30); ALCOHOL, BLOOD < 3 mg/dL (<10)
[2023-09-27 17:12] LABS: SALICYLATE < 1 mg/dL (3-30)
[2023-09-28] MEDS ORDERED: NACL 0.9% 1,000 ML IV ONE (02:15)
[2023-09-28] MEDS ORDERED: PANTOPRAZOLE SODIUM 40 MG TAB PO ONE (06:30)
[2023-09-28 08:09] LABS: BARBITURATE, URINE NEGATIVE (NEG <=200); BENZODIAZEPINE, URINE NEGATIVE (NEG <=150); CANNABINOID, URINE NEGATIVE (NEG <=50); COCAINE, URINE NEGATIVE (NEG <=150); METHAMPHETAMINES SCREEN,URINE NEGATIVE (NEG <=500); OPIATE, URINE NEGATIVE (NEG <=100); PHENCYCLIDINE SCREEN,URINE NEGATIVE (NEG <=25); UR TRICYCLIC ANTIDEPRESSANTS NEGATIVE (NEG <=300); URINE AMPHETAMINE NEGATIVE (NEG <=500); URINE METHADONE NEGATIVE (NEG <=200); URINE OXYCODONE SCREEN NEGATIVE (NEG <=100)
[2023-09-28 08:33] VITALS: BP_SYST 123; PULSE 70; RESP 16; TEMP 97.7; O2SAT 100
[2023-09-28] MEDS ORDERED: FLUoxetine HCL 10 MG CAPSULE (PROzac) PO SCH (09:00)
== END 2023-09-28 08:32 | disposition home or self-care (01) ==
LOC: SED 15:55
DX: T43.622A Poisoning by amphetamines, intentional self-harm, initial encounter (principal); I11.0 Hypertensive heart disease with heart failure; I50.9 Heart failure, unspecified; E11.9 Type 2 diabetes mellitus without complications; Z79.899 Other long term (current) drug therapy; Y92.89 Other specified places as the place of occurrence of the external cause; Z20.822 Contact with and (suspected) exposure to COVID-19
CPT/HCPCS: 99285; 87426; 80307; 80076; 80048; 82550; 85025; 84484; 36415; 93005; 96360; 82962; J7030; G0480; G0481; G0482

== ENCOUNTER 2023-11-24 21:47 | Emergency (ER) | payer MEDICAID ==
[~2023-11-24] VITALS: Ht 160 cm; Wt 52.2 kg
[2023-11-24 22:10] VITALS: BP_SYST 129; PULSE 74; RESP 16; TEMP 97.9; O2SAT 99
[2023-11-24 23:15] LABS: BILIRUBIN,URINE NEGATIVE (NEGATIVE); CLARITY/URINE CLEAR (CLEAR); COLOR,URINE YELLOW (YELLOW); GLUCOSE,URINE 3+ (NEGATIVE); KETONES,URINE NEGATIVE (NEGATIVE); LEUKOCYTE ESTERASE ,URINE NEGATIVE (NEGATIVE); NITRITE, URINE NEGATIVE (NEGATIVE); PROTEIN URINE 3+ (NEGATIVE); UROBILINOGEN,URINE 0.2 (0.2-1.0)
[2023-11-24 23:18] LABS: BLOOD, URINE TRACE (NEGATIVE)
[2023-11-24 23:31] LABS: RBC,URINE 0-3 /HPF (0-3); WBC,URINE 0-3 /HPF (0-3)
[2023-11-24 23:32] LABS: BACTERIA,URINE None Seen /HPF (None Seen); TRICHOMONAS,URINE None Seen /HPF (None Seen); YEAST,URINE None Seen /HPF (None Seen)
[2023-11-24] MEDS: MORPHINE 4 MG INJ. 4 MG/ML VIAL IM ONE (23:38)
[2023-11-25] MEDS ORDERED: TRAM50TA2 PO (00:43)
[2023-11-25 00:50] VITALS: BP_SYST 105; PULSE 61; RESP 21; TEMP 98.3; O2SAT 98
== END 2023-11-25 00:50 | disposition home or self-care (01) ==
LOC: SED 21:47
DX: M54.50 Low back pain, unspecified (principal); I50.9 Heart failure, unspecified; E11.9 Type 2 diabetes mellitus without complications; Z79.899 Other long term (current) drug therapy; I11.0 Hypertensive heart disease with heart failure; I48.0 Paroxysmal atrial fibrillation
CPT/HCPCS: 99284; 81001; 93005; 96372; J2270; 81000; 81015

== ENCOUNTER 2024-01-29 04:07 | Emergency (ER) | payer MEDICAID ==
[~2024-01-29] VITALS: Ht 160 cm; Wt 56.7 kg
[~2024-01-29 04:07] MED LIST changes: +CARV6.2554 PO; +FURO40TA5 PO; +GABA-529 PO; +LEVE500T21 PO; +LOSA25TA18 PO; +TRAM50TA2 PO
[2024-01-29 04:17] VITALS: BP_SYST 135; PULSE 81; RESP 18; TEMP 98.6; O2SAT 98
[2024-01-29] MEDS ORDERED: FLUORESCEIN SODIUM 1 MG OPHTHALMIC STRIP OP ONE (04:45)
[2024-01-29] MEDS: FLUORESCEIN SODIUM 1 MG OPHTHALMIC STRIP OP ONE (04:56)
[2024-01-29 05:22] VITALS: BP_SYST 143; PULSE 78; RESP 20; TEMP 98; O2SAT 98
[2024-01-29] MEDS: OPTH OP ONE (05:43)
[2024-01-29] MEDS: PROPARACAINE 0.5% OP ONE (05:43)
== END 2024-01-29 05:15 | disposition home or self-care (01) ==
LOC: SED 04:07
DX: R25.3 Fasciculation (principal); H57.11 Ocular pain, right eye; I11.0 Hypertensive heart disease with heart failure; I50.9 Heart failure, unspecified; E11.9 Type 2 diabetes mellitus without complications; Z79.4 Long term (current) use of insulin; Z79.899 Other long term (current) drug therapy
CPT/HCPCS: 82948; 99283

== ENCOUNTER 2024-04-30 07:41 | Emergency (ER) | payer MEDICAID ==
[~2024-04-30] VITALS: Ht 160 cm; Wt 56.7 kg
[2024-04-30 07:45] VITALS: BP_SYST 134; PULSE 86; RESP 16; TEMP 97.4; O2SAT 99
[2024-04-30] MEDS ORDERED: D-ME120S28 PO (08:26)
[2024-04-30] MEDS ORDERED: FURO-149 PO (08:26)
[2024-04-30 08:54] VITALS: BP_SYST 139; PULSE 68; RESP 20; TEMP 97; O2SAT 98
== END 2024-04-30 08:56 | disposition home or self-care (01) ==
LOC: SED 07:41
DX: I11.0 Hypertensive heart disease with heart failure (principal); I50.9 Heart failure, unspecified; J06.9 Acute upper respiratory infection, unspecified; B97.89 Other viral agents as the cause of diseases classified elsewhere; E11.9 Type 2 diabetes mellitus without complications; Z79.899 Other long term (current) drug therapy; Z79.2 Long term (current) use of antibiotics; Z79.4 Long term (current) use of insulin
CPT/HCPCS: 71045; 99283